=== PATIENT | female | born 1955 | race Caucasian/White ===

== ENCOUNTER 2025-01-12 10:13 | Outpatient (CLI) | payer MEDICARE ==
--- NOTE | 2025-01-12 11:18 | RADIOLOGY REPORT ---
EXAM: DI KNEE, COMP 4 VW MIN HISTORY: OTHER TEAR OF MENISCUS OF RIGHT KNEE COMPARISON: None TECHNIQUE: Four views of the right knee were performed. FINDINGS: No acute fracture is identified about the right knee. There are tricompartmental marginal osteophytes . There is moderate to severe joint space narrowing of the medial compartment. No lateral patellar ti lt or subluxation on the sunrise view. Probable small joint effusion. IMPRESSION: 1. Tricompartmental degenerative changes of the right knee, greatest in the medial compartment. 2. No fracture of the right knee. 3. Probable small right knee effusion.
== END 2025-01-12 23:59 | disposition home or self-care (01) ==
LOC: RAD 10:13
PROVIDERS: ATTEND Student in an Organized Health Care Education/Training Program
DX: S83.203A Other tear of unspecified meniscus, current injury, right knee, initial encounter (principal); M17.11 Unilateral primary osteoarthritis, right knee; X58.XXXA Exposure to other specified factors, initial encounter; Y93.89 Activity, other specified; Y92.89 Other specified places as the place of occurrence of the external cause; Y99.9 Unspecified external cause status
CPT/HCPCS: 73564